=== PATIENT | female | born 1955 | race Caucasian/White ===

== ENCOUNTER → 2017-02-13 | Outpatient (CLI) | payer OTHER ==
[~2017-02-13] MED LIST: Z.0.NO CURRENT MEDS
[2017-02-13 13:32] LABS: AUTOMATED NEUTROPHIL # 3.7 TH/MM3 (1.8-7.7); BASOPHIL % 0.7 % (0.0-2.0); EOSINOPHIL # 0.1 TH/MM3 (0-0.4); EOSINOPHIL % 2.3 % (0.0-4.0); HEMATOCRIT 41.4 % (35.0-46.0); HEMO FLAGS DIFF FINAL; LYMPH % 33.2 % (9.0-44.0); LYMPHOCYTE # 2.1 TH/MM3 (1.0-4.8); MEAN CORPUSCULAR HEMOGLOBIN 29.6 PG (27.0-34.0); MEAN CORPUSCULAR HGB CONC 33.6 % (32.0-36.0); MONO % 5.3 % (0.0-8.0); NEUT % 58.5 % (16.0-70.0); PLATELET COUNT 203 TH/MM3 (150-450); RED BLOOD COUNT 4.71 MIL/MM3 (4.00-5.30); RED CELL DISTRIBUTION WIDTH 13.6 % (11.6-17.2); WHITE BLOOD COUNT 6.4 TH/MM3 (4.0-11.0)
[2017-02-13 13:38] LABS: BACTERIA, URINE FEW /hpf; BLOOD, URINE NEG (NEG); GLUCOSE,URINE NEG (NEG); KETONE, URINE NEG (NEG); NITRITE,URINE NEG (NEG); SQUAMOUS EPITHELIAL CELL URINE 8 /hpf (0-5); URINE COLOR YELLOW (YELLW/STRAW)
[2017-02-13 14:02] LABS: ANION GAP 7 MEQ/L (5-15); AST (GOT) 16 U/L (15-37); BICARBONATE 28.9 MEQ/L (21.0-32.0); BLOOD UREA NITROGEN 9 MG/DL (7-18); CHLORIDE 106 MEQ/L (98-107); GLOMERULAR FILTRATION RATE 89 ML/MIN (>89); GLUCOSE,FASTING 98 MG/DL (74-99); POTASSIUM 3.9 MEQ/L (3.5-5.1); SODIUM (NA) 142 MEQ/L (136-145)
[2017-02-13 14:03] LABS: ALT (GPT) 26 U/L (10-53)
[2017-02-13 14:12] LABS: ALKALINE PHOSPHATASE 69 U/L (45-117); FREE T4 1.12 NG/DL (0.76-1.46); LDL CHOLESTEROL 88 MG/DL (0-99); TOTAL BILIRUBIN ADULT 0.5 MG/DL (0.2-1.0)
[2017-02-13 16:48] LABS: CHLAMYDIA PCR NOT DETECTED (NOT DETECT); NEISSERIA PCR NOT DETECTED (NOT DETECT)
[2017-02-16 03:49] LABS: C TRACHOMATIS IGA <1:16; C TRACHOMATIS IGG <1:64; C TRACHOMATIS IGM <1:10
== END ==
LOC: PLAB 10:02
PROVIDERS: ATTEND Family Medicine Adolescent Medicine
DX: Z00.00 Encounter for general adult medical examination without abnormal findings (principal); Z72.51 High risk heterosexual behavior; Z72.89 Other problems related to lifestyle; Z79.899 Other long term (current) drug therapy
CPT/HCPCS: 80053; 80061; 81001; 84439; 84443; 85025; 86592; 86631; 86632; 86695; 86696; 86703; 86704; 86803; 87491; 87591